=== PATIENT | female | born 1980 | race Caucasian/White ===

== ENCOUNTER 2017-01-03 11:22 | Emergency (ER) | payer BC, MEDICAID ==
[2017-01-03] MEDS ORDERED: KETOROLAC 30 MG INJ IM STA (12:57)
--- NOTE | 2017-01-03 13:07 | ERD ---
ER Documentation Chief Complaint Date/Time DATE: 01/03/17 TIME: 13:03 Chief Complaint back pain HPI 36 year old female was brought in by rescue for 2 day history of low back pain. Patient reports it is in the midline, low back, she woke up with it and it gradually became worse. Pain is moderate to severe, noted at rest only, and nonradiating. She Denies saddle anesthesia loss of bowel bladder function. She denies trauma, fevers or chills. ROS All systems reviewed and are negative except as per history of present illness. Medications Home Meds Active Scripts Ibuprofen* (Motrin*) 600 Mg Tab, 600 MG PO Q6, #30 TAB Prov:JESI BROWN PA-C 01/03/17 Cyclobenzaprine Hcl* (Cyclobenzaprine Hcl*) 5 Mg Tablet, 5 MG PO Q8H Y for PAIN , #15 TAB Prov:JESI BROWN PA-C 01/03/17 Allergies Allergies: Coded Allergies: No Known Allergy (Unverified , 11/22/15) PMhx/Soc Anesthesia Reaction: No Hx Neurological Disorder: No Hx Respiratory Disorders: No Hx Cardiac Disorders: No Hx Psychiatric Problems: No Hx Miscellaneous Medical Probl: No Hx Alcohol Use: No Hx Substance Use: No Hx Tobacco Use: No Physical Exam Vitals See nursing notes Physical Exam General: Well-developed, well-nourished. The patient appears in no acute distress. HEENT: Head is normocephalic, atraumatic. No scleral icterus. Neck: Supple. Nontender. Lungs: Clear to auscultation. Normal air movement. Heart: Regular rate and rhythm. S1 and S2 are normal. No murmurs, gallops, or rubs. Abdomen: Nondistended. Soft, nontender Back: Paraspinal tenderness at L4-L5 on the right side, there is no evidence of crepitus, no ecchymosis, no rashes. Strength lower extremities 5 out of 5 bilaterally. Extremities: No clubbing or cyanosis. Moving extremities x 4. No weakness. Neurologic: Alert and oriented 3. No focal deficits. Normal speech and gait. Skin: Normal turgor. No rash or lesions. Results 24 hrs Current Medications Medications (Trade) Dose Ordered Sig/Bee Route PRN Reason Start Time Stop Time Status Last Admin Dose Admin Ketorolac Tromethamine (Toradol) 30 mg ONCE STAT IM 01/03/17 12:57 01/03/17 12:59 DC 01/03/17 13:20 DIAGNOSTIC IMAGING REPORT Patient: KAYLAN MICHAEL : 1980 Age: 36 Sex: F MR #: [id number] DOS: 01/03/17 1257 Ordering MD: JESI BROWN PA-C Location: [facility] Room/Bed: PROCEDURE: Lumbar spine series CLINICAL INDICATION: Back pain TECHNIQUE: Three views of the lumbar spine are available for review COMPARISON: None available FINDINGS: The normal lumbar lordosis is preserved. Alignment is intact. No acute fracture or dislocation is seen. Vertebral body heights are well maintained. Intervertebral disk heights are well maintained. Paraspinous soft tissues are grossly unremarkable. IMPRESSION: 1. Unremarkable lumbar spine series. RPTAT: AA .Mahad Rosas MD, MD Date Time Electronically viewed and signed by .Mahad Rosas MD, on 2016 14:13 .B/ CC: JESI BROWN PA-C Procedures/MDM 36-year-old female comes in with acute onset of low back pain for 2 days after waking up with it. Patient has a normal lumbar x-ray and normal examination, patient likely present with a lumbar strain. My differential diagnosis includes lumbar strain, subluxation, fracture, cauda equina, epidural abscess, epidural hematoma, acute coronary syndrome, dissection, pulmonary embolus, renal colic, pancreatitis, pyelonephritis. Departure Diagnosis: Primary Impression: Back pain Condition: Good JESI BROWN PA-C Jan 03, 2017 13:07
--- NOTE | 2017-01-03 14:13 | RADRPT ---
PROCEDURE: Lumbar spine series CLINICAL INDICATION: Back pain TECHNIQUE: Three views of the lumbar spine are available for review COMPARISON: None available FINDINGS: The normal lumbar lordosis is preserved. Alignment is intact. No acute fracture or dislocation is s een. Vertebral body heights are well maintained. Intervertebral disk heights are well maintained. Paraspinous soft tissues are grossly unremarkable. IMPRESSION: 1. Unremarkable lumbar spine series. RPTAT: AA .Mahad Rosas MD, Date Time Electronically viewed and signed by .Mahad Rosas MD, on 01/03/2017 14:13 .B/
[2017-01-03] MEDS ORDERED: IBUP-1542 PO (14:21)
[2017-01-03] MEDS ORDERED: CYCL5TAB PO (14:21)
== END 2017-01-03 14:28 | disposition home or self-care (01) ==
LOC: E/R 11:22 → FTE 14:28
DX: M54.5 Low back pain (principal)
CPT/HCPCS: 72100; 96372; J1885; Z7502